=== PATIENT | female | born 2000 | race Caucasian/White ===

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

== ENCOUNTER 2019-01-27 04:01 | Emergency (ER) | payer OTHER ==
[~2019-01-27] VITALS: Ht 175.3 cm; Wt 67.1 kg
[2019-01-27 04:03] VITALS: BP 100/59
--- NOTE | 2019-01-27 04:08 | NUR ---
PT TAKEN TO BED 2
[2019-01-27] MEDS ORDERED: ONDANSETRON 4 MG ODT PO ONE (04:10)
--- NOTE | 2019-01-27 04:15 | NUR ---
19 YO F BIB SELF AND DAD PRESENTS TO ED C/O 5/10 SHARP EPIGASTRIC PAIN X 1 HOUR. ALSO REPORTS SMALL EMESIS X 1, DIARRHEA X 1 IN PAST HOUR. REPORTS MILD NAUSEA AT THIS TIME. DENIES FEVER/CHILLS. SITTING QUIETLY IN BED WITH HOB ELEVATED. NO FACIAL GRIMACING, GUARDING, MOANING AT THIS TIME. CALM, COOPERATIVE. BEHAVIOR APPROPRIATE. SKIN PINK, WARM, DRY. BREATHING EVEN, UNLABORED. BOWEL SOUNDS ACTIVE + 4. PMH-- ANXIETY RX-- ATIVAN NEEDED
--- NOTE | 2019-01-27 04:25 | NUR ---
MEDICATED WITH ZOFRAN 4 MG ODT FOR NAUSEA. WILL REASSESS IN 20 MINS.
--- NOTE | 2019-01-27 04:57 | NUR ---
REPORTS RELIEF FROM NAUSEA. RESTING COMFORTABLY IN BED.
--- NOTE | 2019-01-27 05:33 | NUR ---
Dr. Elliott examining patient.
[2019-01-27 05:57] VITALS: BP 107/62
--- NOTE | 2019-01-27 05:57 | NUR ---
Discharge papers given to pt. Pt states relief. N/V reduced, 2/10 tollerable pain, afebrile with VSS. Written and verbal after care instructions given and explained. Patient alert, oriented and verbalized understanding of instructions. Ambulatory with steady gait. All questions addressed prior to discharge. ID band removed. Patient advised to follow up with PMD and when to return to ER. Rx of Zofran, Motrin, and Imodium given. Patient educated on indication of medication including possible reaction and side effects. Opportunity to ask questions provided and answered.
== END 2019-01-27 05:57 | disposition home or self-care (01) ==
LOC: MED 04:01
DX: R10.9 Unspecified abdominal pain (principal); R11.2 Nausea with vomiting, unspecified; R19.7 Diarrhea, unspecified; F41.9 Anxiety disorder, unspecified
CPT/HCPCS: 81002; 81025; 99283; Q0162

== ENCOUNTER 2021-12-06 20:14 | Emergency (ER) | payer OTHER ==
[~2021-12-06] VITALS: Ht 175.3 cm; Wt 68.0 kg
[2021-12-06 20:30] VITALS: BP 119/66
--- NOTE | 2021-12-06 20:33 | NUR ---
TO LOBBY A/W BED AMBULATORY
--- NOTE | 2021-12-06 20:54 | NUR ---
PT AMBULATES WITH STEADY GAIT TO BED 3. SEE ASSESSMENT.
--- NOTE | 2021-12-06 21:05 | NUR ---
Dr. Iverson examining patient.
[2021-12-06] MEDS ORDERED: ACETAMINOPHEN 325 MG TAB PO ONE (21:20)
--- NOTE | 2021-12-06 21:30 | NUR ---
URINE COLLECTED AND URINE PREG DONE
[2021-12-06] MEDS ORDERED: KETOROLAC 15 MG/ML VIAL IM ONE (21:50)
[2021-12-06] MEDS ORDERED: IBUP-2213 PO (22:58)
[2021-12-06 23:00] VITALS: BP 108/62
== END 2021-12-06 23:00 | disposition home or self-care (01) ==
LOC: MED 20:14
DX: B34.9 Viral infection, unspecified (principal); Z20.822 Contact with and (suspected) exposure to COVID-19; R51.9 Headache, unspecified
CPT/HCPCS: 81025; 87426; 87804; 96372; 99283; J1885

== ENCOUNTER 2022-01-13 12:47 | Emergency (ER) | payer OTHER ==
[~2022-01-13] VITALS: Ht 175.3 cm; Wt 68.0 kg
[~2022-01-13 12:47] MED LIST: IBUP-2213 PO
[2022-01-13 12:50] VITALS: BP 123/72
[2022-01-13] MEDS ORDERED: ACETAMINOPHEN 325 MG TAB PO ONE (14:05)
--- NOTE | 2022-01-13 14:50 | NUR ---
PT WAKLED TO ROOM 4 WTIH STEADY GAIT.
[2022-01-13] MEDS ORDERED: ACETAMINOPHEN 325 MG TAB ONE (15:21)
--- NOTE | 2022-01-13 15:28 | NUR ---
Cristhian fajardo in EDM - 01/13/22 at 1536 by [id number] MEDICATED PT WITH TYLENOL. TDAP GIVEN IM.
--- NOTE | 2022-01-13 15:28 | NUR ---
MEDICATED PT PER MD ORDER.
--- NOTE | 2022-01-13 15:36 | NUR ---
Patient discharged with v/s stable. Written and verbal after care instructions given and explained. Patient verbalized understanding. Ambulatory with steady gait. All questions addressed prior to discharge. Advised to follow up with PMD.
[2022-01-13 15:37] VITALS: BP 112/75
== END 2022-01-13 15:36 | disposition home or self-care (01) ==
LOC: MED 12:47
DX: S01.83XA Puncture wound without foreign body of other part of head, initial encounter (principal); V49.88XA Car occupant (driver) (passenger) injured in other specified transport accidents, initial encounter; Y93.89 Activity, other specified; Y92.89 Other specified places as the place of occurrence of the external cause; Y99.8 Other external cause status
CPT/HCPCS: 90471; 90715; 99283